=== PATIENT | female | born 1950 | race Caucasian/White ===

== ENCOUNTER → 2019-06-06 | Outpatient (CLI) | payer BC, OTHER ==
[2019-06-06 10:48] LABS: HEMATOCRIT 43.9 % (36.0-47.0); HEMOGLOBIN 13.5 g/dl (12.0-15.5); MEAN CORPUSCULAR HEMOGLOBIN 28.3 pg (27.0-33.0); MEAN CORPUSCULAR HGB CONC 30.8 g/dl (32.0-36.5); PLATELET COUNT, AUTOMATED 205 10^3/uL (150-450); RED BLOOD COUNT 4.77 10^6/uL (4.00-5.40); WHITE BLOOD COUNT 7.6 10^3/uL (4.0-10.0)
[2019-06-06 10:52] LABS: INR 1.87; PROTHROMBIN TIME 21.3 SECONDS (11.8-14.0)
== END ==
LOC: M LAB 10:09
PROVIDERS: ATTEND Internal Medicine Cardiovascular Disease
DX: Z51.81 Encounter for therapeutic drug level monitoring (principal); Z79.01 Long term (current) use of anticoagulants

== ENCOUNTER → 2019-06-11 | Outpatient (CLI) | payer BC, OTHER ==
[2019-06-11 11:19] LABS: HEMATOCRIT 44.9 % (36.0-47.0); HEMOGLOBIN 14.1 g/dl (12.0-15.5); MEAN CORPUSCULAR HEMOGLOBIN 28.6 pg (27.0-33.0); MEAN CORPUSCULAR HGB CONC 31.4 g/dl (32.0-36.5); MEAN CORPUSCULAR VOLUME 91.1 fl (80.0-96.0); PLATELET COUNT, AUTOMATED 230 10^3/uL (150-450); RED BLOOD COUNT 4.93 10^6/uL (4.00-5.40); WHITE BLOOD COUNT 7.5 10^3/uL (4.0-10.0)
[2019-06-11 11:30] LABS: INR 4.04; PROTHROMBIN TIME 39.4 SECONDS (11.8-14.0)
== END ==
LOC: M LAB 10:45
PROVIDERS: ATTEND Internal Medicine Cardiovascular Disease
DX: Z51.81 Encounter for therapeutic drug level monitoring (principal); Z79.01 Long term (current) use of anticoagulants; I48.0 Paroxysmal atrial fibrillation

== ENCOUNTER → 2020-06-28 | Outpatient (CLI) | payer MEDICARE ==
[~2020-06-28] MED LIST: ISOVUE-370 76% 100ML VIAL As Ordered ONE
--- NOTE | 2020-06-28 10:41 | REP ---
INDICATION: DISSECTION OF THORACIC AORTA. COMPARISON: None. TECHNIQUE: Contrast dose: 75 ML of Isovue [address] technique: Helical scanning is acquired and overlapping 1.5 mm and contiguous 3 mm axial images are reformatted. In addition, maximum intensity projection and multiplanar re-formation images are generated in sagittal and coronal imaging projections. FINDINGS: There is good opacification of the thoracic aorta. The patient is status post aortic valve replacement. Median sternotomy wires are seen. Great vessel origins are unremarkable. Vascular calcification is seen. There does appear to be a dissection flap visible in the right subclavian and right axillary arteries. No dissection or aneurysm is seen in the ascending aorta, aortic arch or proximal descending aorta. There is a dissection flap initially visualized at the level of the diaphragmatic hiatus in the very distal most thoracic aorta. At this level, the aorta measures 3.1 x 4.8 cm in transverse dimension. The false lumen is opacified. The true lumen feeds a stenotic celiac axis origin and the SMA origin. The false lumen feeds the right renal artery. True lumen feeds the left renal artery. In the abdomen, the true lumen appears somewhat narrowed or compressed. No periaortic hemorrhage or inflammation is seen. Above the level of the dissection, the descending thoracic aortic dimensions are 2.4 x 2.5 cm. The ascending aorta measures 3.0 cm in AP dimension at the level of the right main pulmonary artery. There is a hiatal hernia. No hilar or mediastinal mass or adenopathy is seen. Four-chamber cardiomegaly is observed. No pericardial or pleural effusion is evident. No infiltrate is seen. There is a bleb in the left lower lobe medially adjacent to the hiatal hernia. No pulmonary mass or significant pulmonary nodule is appreciated. No bony destructive lesion is seen. Lung window settings demonstrate In the upper abdomen, normal adrenal glands are observed. Gallstones are noted. IMPRESSION: Status post aortic valve replacement. 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 Incidental findings include hiatal hernia and cholelithiasis. Cardiomegaly is observed. Prior sternotomy wires.. <Electronically signed by Kameron Shaffer > 06/28/20 1038
== END ==
LOC: M RAD 08:37
DX: I71.01 Dissection of thoracic aorta (principal); Z95.1 Presence of aortocoronary bypass graft; K44.9 Diaphragmatic hernia without obstruction or gangrene; K80.20 Calculus of gallbladder without cholecystitis without obstruction; I51.7 Cardiomegaly
CPT/HCPCS: 71275; Q9967

== ENCOUNTER → 2021-03-11 | Outpatient (CLI) | payer MEDICARE | LOC: M WHC 08:53 | PROVIDERS: ATTEND Obstetrics & Gynecology | DX: Z12.31 Encounter for screening mammogram for malignant neoplasm of breast (principal); Z80.0 Family history of malignant neoplasm of digestive organs ==